=== PATIENT | female | born 1960 | race Caucasian/White ===

== ENCOUNTER 2022-01-11 11:45 | Emergency (ER) | payer OTHER ==
[2022-01-11 15:10] LABS: BASOPHIL 0.6 % (0-2); EOSINOPHIL 1.2 % (0-5); HCT 47.7 % (37.0-47.0); HGB 15.6 g/dl (12.5-16.0); LYMPHOCYTE 9.1 % (15-48); MCH 27.2 pg (25.0-31.0); MCHC 32.7 g/dL (32.0-36.0); MCV 83.1 fL (78.0-100.0); MONOCYTE 4.8 % (0-12); MPV 10.8 fL (6.0-9.5); NEUTROPHIL 83.6 % (41-80); NRBC 0; PLT 283 K/uL (150-400); RBC 5.74 M/uL (4.20-5.40); RDW 13.8 % (11.5-14.0); WBC 12.2 K/uL (4.0-10.5)
[2022-01-11 15:48] LABS: BUN/CREAT RATIO (CALC) 16.4 RATIO; CREATININE 1.16 mg/dL (0.51-0.95); POTASSIUM 3.7 mmol/L (3.5-5.1)
[2022-01-11] MEDS ORDERED: PERCOCET 5-3251 EACH PO (18:59)
[2022-01-11] MEDS ORDERED: ROBAXIN500 MG PO (18:59)
== END 2022-01-11 19:15 | disposition home or self-care (01) ==
LOC: FER 11:45
PROVIDERS: Nurse Practitioner Family
DX: S56.911A Strain of unspecified muscles, fascia and tendons at forearm level, right arm, initial encounter (principal); S16.1XXA Strain of muscle, fascia and tendon at neck level, initial encounter; S09.90XA Unspecified injury of head, initial encounter; R07.89 Other chest pain; E11.9 Type 2 diabetes mellitus without complications; I10 Essential (primary) hypertension; J45.909 Unspecified asthma, uncomplicated; Z88.5 Allergy status to narcotic agent; Z88.8 Allergy status to other drugs, medicaments and biological substances; V49.40XA Driver injured in collision with unspecified motor vehicles in traffic accident, initial encounter
CPT/HCPCS: 36415; 70450; 71250; 72125; 73090; 80048; 84484; 85025; 93005; J2270; J2405